=== PATIENT | male | born 1985 | race Caucasian/White ===

== ENCOUNTER 2019-01-28 03:58 | Emergency (ER) | payer SELFPAY ==
[~2019-01-28] VITALS: Ht 175.3 cm; Wt 88.2 kg
[2019-01-28 04:06] VITALS: Ht 175.3 cm; Wt 88.2 kg
[2019-01-28 07:16] VITALS: BP 130/84
== END 2019-01-28 07:16 | disposition home or self-care (01) ==
LOC: ED 03:58
DX: S61.411A Laceration without foreign body of right hand, initial encounter (principal); W26.8XXA Contact with other sharp object(s), not elsewhere classified, initial encounter; Y93.89 Activity, other specified; Y92.89 Other specified places as the place of occurrence of the external cause; Y99.8 Other external cause status
CPT/HCPCS: 90715; J2001